=== PATIENT | male | born 2005 | race Caucasian/White ===

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

== ENCOUNTER 2024-07-17 19:13 | Emergency (ER) | payer MEDICAID, SELFPAY ==
[2024-07-17 19:29] VITALS: BP 132/73; PULSE 99; RESP 18; TEMP 36.9; O2SAT 98
[2024-07-17 20:10] LABS: Appearance Urine Clear (Clear); Bilirubin Urine 1+ (Negative); Blood Urine Negative (Negative); Color Urine Yellow (Yellow); Glucose Urine Negative (Negative); Ketones Urine Trace (Negative); Leukocyte Esterase Urine Negative (Negative); Nitrite Urine Negative (Negative); Protein Urine 1+ (Negative); Specific Gravity Urine >= 1.030 (1.000-1.030); pH Urine 5.5 (5.0-8.5)
[2024-07-17 20:20] LABS: Amorphous Sediment Urine Moderate; RBC Urine 0-2 (0-2); Squamous Epithelial Cell Urine Few (None-Few); WBC Urine 0-2 (0-5)
[2024-07-17 20:21] LABS: Calcium Oxalate Crystals Urine Many; Mucus Urine Moderate
[2024-07-17 21:14] VITALS: BP 133/74; PULSE 73; RESP 16; TEMP 37.4; O2SAT 96
--- NOTE | 2024-07-17 22:02 | ED_ITS ---
HPI - Male Genitourinary General Chief complaint: Urogenital Problems, Male Stated complaint: Burning sensation, burning pee Time Seen by Provider: 07/17/24 20:38 History of Present Illness HPI Narrative: This patient comes in reporting pain with voiding urine. He reports that he has a new sexual partner recently. He does not report any fever. He states that he has some small little sores at the end of his penis on the foreskin actually. These are what become painful when passing urine. Related Data Home Medications ?Medication ?Instructions ?Recorded ?Confirmed No Known Home Medications 07/17/24 07/17/24 Allergies Allergy/AdvReac Type Severity Reaction Status Date / Time cat dander Allergy Mild Rash Verified 07/17/24 19:33 Review of Systems Status of ROS: Reports: 10 or more systems reviewed and unremarkable except as noted in History and below Narrative: Constitutional: No fevers, no weight gain or loss. Eyes: No discharge. No vision changes. HENT: No congestion, no sore throat, no ear pain. Cardiovascular: No chest pain, no palpitations. Respiratory: No shortness of breath, no wheezes, no cough. Gastrointestinal: No abdominal pain, no vomiting, no diarrhea. Genitourinary: Pain with voiding urine. Musculoskeletal: Normal range of motion. Skin: No rashes, no pruritis. Neurological: No dizziness, weakness, sensory change, speech change. Endo/Heme/Allergies: No bruising or bleeding. No polydipsia. Pysch: no suicidality, no anxiety, no insomnia. All other systems reviewed and are negative. [facility] Medical History No significant past medical history Social History Smoking Status: Current every day smoker What tobacco products do you use: cigarettes Do you use any of these nicotine containing products: E-Cigarettes and Vaping Products Second hand tobacco smoke exposure: No How often do you have a drink containing alcohol: 2-3 times a week How often do you have six or more drinks on one occasion: Weekly AUDIT-C Alcohol total score: 6 Non-prescribed substance use: marijuana (any form) service: No Exam Narrative: Exam Narrative: Constitutional: Well-developed, well-nourished, no acute distress. HEENT: Normocephalic, atraumatic. Neck: Normal range of motion. Nontender. Supple. Heart: Intact distal pulses. Lungs: No chest discomfort. No wheezes, rhonchi, or rales. Abdomen: Nontender. Back: Normal range of motion. Extremities: Normal range of motion. No injury. Genitourinary: The patient is not circumcised and the tip of the foreskin has some small abrasions. These are the areas that cause pain when passing urine. Skin: Intact. No rash. Warm. No erythema or pallor. Neurologic: No altered sensation. No weakness. Alert and oriented. Psychiatric: No suicidality. No anxiety or depression. No insomnia. Nursing notes and vitals signs are reviewed. Const: Vital Signs, click to edit/add: Vital Signs - 24 hr 07/17/24 19:29 07/17/24 21:14 Temperature 98.4 F 99.3 F Pulse Rate [Pulse Oximeter] 99 73 Respiratory Rate 18 16 [facility] 132/73 133/74 Pulse Oximetry 98 96 Oxygen Delivery Me thod Room Air Room Air Course Vital Signs Vital signs: Initial Vital Signs Temperature 98.4 F 07/17/24 19:29 Temperature Source Temporal Artery Scan 07/17/24 19:29 Pulse Rate 99 07/17/24 19:29 Pulse Rhythm Regular 07/17/24 19:29 Pulse Strength 3+ Normal 07/17/24 19:29 Respiratory Rate 18 07/17/24 19:29 Blood Pressure 132/73 07/17/24 19:29 Blood Pressure Mean 92 07/17/24 19:29 Blood Pressure Position Sitting 07/17/24 19:29 Pulse Oximetry 98 07/17/24 19:29 Oxygen Delivery Method Room Air 07/17/24 19:29 Vital Signs Temperature 98.4 F 07/17/24 19:29 Pulse Rate 99 07/17/24 19:29 Respiratory Rate 18 07/17/24 19:29 Blood Pressure 132/73 07/17/24 19:29 Pulse Oximetry 98 07/17/24 19:29 Oxygen Delivery Method Room Air 07/17/24 19:29 Temperature 99.3 F 07/17/24 21:14 Pulse Rate 73 07/17/24 21:14 Respiratory Rate 16 07/17/24 21:14 Blood Pressure 133/74 07/17/24 21:14 Pulse Oximetry 96 07/17/24 21:14 Oxygen Delivery Method Room Air 07/17/24 21:14 MDM - Male Genitourinary MDM Narrative Medical decision making narrative: This patient has normal vital signs and is complaining of pain when passing urine but it really is the urine itself touching some superficial abrasions at the end of the foreskin of his penis. Urinalysis is negative for infection. I advised the patient to use some kind of barrier cream or ointment to protect this area and keep urine from causing irritation. A barrier cream like Desitin could be used. The patient was also interested in having a physical exam so I instructed him how to proceed with such an appointment. Lab Data Labs: Lab Results 07/17/24 07/17/24 Range/Units 20:07 20:30 Urine Color Yellow (Yellow) Urine Appearance Clear (Clear) Urine pH 5.5 (5.0-8.5) Ur Specific T[place]y >= 1.030 (1.000-1.030) Urine Protein 1+ A (Negative) Urine Glucose (UA) Negative (Negative) Urine Ketones Trace A (Negative) Urine Blood Negative (Negative) Urine Nitrite Negative (Negative) Urine Bilirubin 1+ A (Negative) Urine Urobilinogen 1.0 (0.2-1.0) Ur Leukocyte Esterase Negative (Negative) Urine RBC 0-2 (0-2) Urine WBC 0-2 (0-5) Ur Squamous Epith Cells Few (None-Few) Calcium Oxalate Crystal Many A (None) Amorphous Sediment Moderate A (None) Urine Bacteria None (None) Urine Mucus Moderate A (None) C.trachomatis Ampl DNA NOT DETECTED (No Detected) N.gonorrhoeae Ampl DNA NOT DETECTED (No Detected) Discharge Plan Discharge Clinical Impression: Urethritis Patient Disposition: Home, Self-Care Condition: Stable Additional Instructions: Use a barrier cream such as Desitin to cover the sore areas and protect from exposure to urine. Follow up with an appointment in the clinic to arrange for history and physical exam. Call [phone] arrange this appointment. Prescriptions: No Action No Known Home Medications Follow Up/Referrals: Provider,Not a Local [Primary Care Provider] - Stand Alone Forms: [employer] Info Instructions
[2024-07-17 22:04] LABS: Chlamydia DNA Amplified* NOT DETECTED (No Detected); GC DNA Amplified* NOT DETECTED (No Detected)
--- OUTSIDE RECORDS SUMMARY | 2024-07-17 22:26 | XMS_ITS | Clinical Summary ---
Author Organization [employer] 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 Name Role Phone None Primary Care Provider Unavailabl e Allergies No known active allergies Medications No known medications Active Problems No known active problems Immunizations Name Administration Dates Next Due Bacillus Calmette-Ron (BCG) 09/07/2012 DTP 04/03/2009 DTaP 10/13/2005, 5,2004,09/03 HIB PRP-OMP (PedvaxHIB) 10/13/2005,2004, HPV 9 (Gardasil 9) 07/30/2023,06/04/2023 Hepatitis A (Peds) 06/04/2023 Hepatitis B (Peds) 2004,2004, 005 Inactivated Polio Vaccine 06/04/2023,,2004,09/03 Influenza, IIV3 (Age 6-35 mos) 07/04/2008 Influenza, IIV3 (Age >=3 years) 06/18/2006 Influenza, IIV4 06/04/2023, 8,08/16/2010,07/16 MENINGOCOCCAL VACCINE 2 VIAL [id number] (MENVEO) 07/30/2023,06/04/2023 MMR 07/10/2010,07/21/2005 Pneumococcal conj 7-Valent (Prevnar 7) 1 2004,2004,2004,09/03 [...] Recorded Sex Assigned at Not on file Legal Sex Male 5:38 PM CDT Gender Identity Not on file Sexual Orientation Not on file Obstetrics History Last Filed Vital Signs Vital Sign Reading Time Taken Comments Blood Pressure 125/64 06/02/2023 2:05 PM CDT Pulse 80 06/02/2023 2:05 PM CDT Temperature 36.3 C (97.4 F) 02/18/2023 5:56 PM CDT Respiratory Rate 20 02/18/2023 5:56 PM CDT Oxygen Saturation 98% 06/02/2023 2:05 PM CDT Inhaled Oxygen Concentration - - Weight 102.8 kg (226 lb 11.2 oz) 06/02/2023 2:05 PM CDT Height 172.3 cm (5' 7.84) 06/02/2023 2:05 PM CD T Body Mass Index 34.64 06/02/2023 2:05 PM CDT Plan of Treatment Health Maintenance Due Date Last Done Comments Pneumococcal series for age 6-64 (1 of 2 - PCV) 2010 07/21/2005, 2004, 2004, Additional history exists HIV for age 15-65 2019 Hepatitis C screening for ag e 18-79 2022 HPV series for age 9-26 (3 - Male 3-dose series) 12/04/2023 07/30/2023, 06/04/2023 COVID-19 vaccine series ( - season) 2024 Influenza for age 9-49 04/10/2024 , 07/20/2018, 08/16/2010, Additional history exists BMI (ht and wt on same day) for age 18+ 06/02/2024 06/02/2023 Well Child Check for age 3-20 06/02/2024 06/02/2023 Depression screening for age 12+ 06/04/2024 06/04/2023, 06/03/2023, 06/02/2023 Tetanus booster 02/18/2033 02/18/2023, 05/11/2014 Tdap Completed 02/18/2023 Meningococcal series for age 11-21 Completed 2022, 06/04/2023 Insurance [facility] Care Teams Glass Forming Engineer Relationship Specialty Start Date End Date None . PCP - General 02/18/23
== END 2024-07-17 22:31 | disposition home or self-care (01) ==
LOC: ED 22:24
PROVIDERS: Emergency Provider Emergency Medicine Emergency Medical Services
DX: N34.2 Other urethritis (principal)
CPT/HCPCS: 81001; 81003; 87491; 87591; 99282; 99283; 99284